=== PATIENT | female | born 1975 | race Caucasian/White ===

== ENCOUNTER 2025-02-16 07:48 | Inpatient (IN) | payer OTHER, SELFPAY ==
[2025-02-14] VITALS (20 sets, daily range): BP systolic 120–194; BP diastolic 63–113; BMI 29.1; BMI 30.3
--- NOTE | 2025-02-14 07:43 | ED.GENMED ---
History of Present Illness
<Becky Aleman DO, Resident - Last Filed: 02/14/25 15:35>
General
Chief Complaint: Alcohol Problem
Source: patient
Exam Limitations: none
Time Seen by Provider: 02/14/25 07:30
Nursing documentation reviewed up to this point in time: agreed with
History of Present Illness
History of Present Illness:
Patient is a 50-year-old female past medical history of alcohol abuse hypertension and hypothyroidism, presenting with alcohol withdrawal. Patient last drink at 3:30 AM. Patient drank 1/5 of vodka patient has a history of delirium tremens with
seizures, so she is unable to be in active withdrawal and go to the [facility] where she would like to go.
Review of Systems
<Becky Aleman DO, Resident - Last Filed: 02/14/25 15:35>
Review of Systems
Allergies reviewed?: Yes
All Other Systems: ROS reviewed and negative except as documented in HPI and ROS
Constitutional: Reports no symptoms
EENT: Reports no symptoms
Respiratory: Reports no symptoms
Cardiac: Reports palpitations
ABD/GI: Reports diarrhea
: Reports no symptoms
Musculoskeletal: Reports other (Shaky)
Skin: Reports no symptoms
Neurological: Reports headache
Endocrine: Reports no symptoms
Hematologic/Lymphatic: Reports no symptoms
Psychiatric: Reports anxiety
Phy Exam
<Becky Aleman DO, Resident - Last Filed: 02/14/25 15:35>
General Physical Exam
General Presentation: mild distress
General age: appears stated age
General Skin: warm and dry
Cardiovascular Exam
Cardiovascular Exam: regular rate/rhythm
Heart Sounds: normal
Pulmonary Exam
Pulmonary Exam: lungs clear and no respiratory distress
Gastrointestinal Exam
Gastrointestinal Exam: normal bowel sounds, non tender and soft
Neurological Exam
Neurological Exam: alert and oriented x3
Psychiatric Exam
Psychiatric Exam: anxious
Scores
<Becky Aleman DO, Resident - Last Filed: 02/14/25 15:35>
Withdrawal Assessment of Alcohol
Total CIWA Score: 6
Alcohol Withdrawal Medication Recommendation: Equal to MSAS Score 0-4. Monitor & re-assess q2hrs, NO MEDICATION NEEDED
<Monica Trejo DO - Last Filed: 02/14/25 14:07>
Withdrawal Assessment of Alcohol
Withdrawal Assessment Completed?: Yes
Nausea and Vomiting: Mild nausea with no vomiting
Tactile Disturbances: None
Tremor: Moderate, with patient's arms extended
Auditory Disturbances: Not present
Paroxysmal Sweats: No sweat visible
Visual Disturbances: Not present
Anxiety: Mild anxiety
Headache, Fullness in Head: Not present
Agitation: Normal activity
Orientation and clouding of sensorium: Oriented and can do serial additions
Total CIWA Score: 6
Alcohol Withdrawal Medication Recommendation: Equal to MSAS Score 0-4. Monitor & re-assess q2hrs, NO MEDICATION NEEDED
Course
<Becky Aleman DO, Resident - Last Filed: 02/14/25 15:35>
Orders/Labs/Results
Orders:
Orders
02/14/25 07:46
Electrocardiogram (*1) Stat
Reason for Study: Other
Other Reason for Exam: overdose
EKG- Treatment ONCE
0.9% Sodium Chloride 1000 ml [Nss] 1,000 ml IV BOLUS
Lorazepam [Ativan] 1 mg IV NOW STA
Test Result ONCE
02/14/25 07:47
Labetalol HCl [Trandate] 10 mg IV NOW STA
02/14/25 07:58
diazePAM [Valium Injection] 2 mg IV NOW STA
02/14/25 08:23
Urinalysis Reflex To Culture Urgent
Date Specimen was Collected: 02/14/25
Time Specimen was Collected: 07:49
Urine Drug Abuse Screen Urgent
Date Specimen was Collected: 02/14/25
Time Specimen was Collected: 07:49
Urine Microscopic Reflex Cult Urgent
02/14/25 08:37
Alcohol Urgent
Basic Metabolic Panel Urgent
Complete Blood Count/With Diff Urgent
HCG, Serum Qualitative Screen Urgent
02/14/25 09:46
Acetaminophen [Tylenol] 1,000 mg PO NOW STA
02/14/25 09:47
Ondansetron Injectable [Zofran] 4 mg IV NOW STA
diazePAM [Valium Injection] 2 mg IV NOW STA
02/14/25 10:18
Magnesium Urgent
Potassium Urgent
02/14/25 12:31
diazePAM [Valium Injection] 2 mg IV NOW STA
02/14/25 14:26
Admit/Transfer Patient As Directed
Co-Sign Provider:
Level of Care: Observation services
Assign to:: Telemetry
Physician / Group: socorro
Diagnosis: alcohol withdrawal
Reason for Telemetry: Arrhythmia
Date to Stop Telemetry: 02/17/25
Time to Stop Telemetry: 11:00
02/14/25 14:27
Code Status As Directed
Resuscitation Status: Full Code
PRN Pain Medication Management As Directed
May give lesser potent ordered pain med per pt: Yes
preference::
Protocol:: Medication orders for pain may be administered in a
manner that supports deferring to patient preference
when the pt is:
- Requesting an ordered lesser potent pain medication.
Least to most potent pain medications are defined
as: acetaminophen < NSAID < tramadol < opioids
(morphine, oxycodone, hydromorphone).
- Requesting a lesser dose of the same medication IF
ORDERED.
- Requesting a less intrusive route of administration
if both routes are prescribed by the provider (PO <
IV).
02/14/25 14:28
DIETARY IP CONSULT Routine
Reason for Consult: Nutrition support, possible refeeding guidelines
FOLic ACID [Folvite] 1 mg 0.9% Sodium Chloride 50 ml [Nss] 50 ml IV DAILYPRN
Lorazepam [Ativan] 1 mg PO Q2HPRN PRN
Phenobarbital Sodium [Phenobarbital] 260 mg 0.9% Sodium Chloride 100 ml [Nss] 100 ml IV NOW
02/14/25 14:29
Case Management Consult Once
Case Management Consult: Other
Comment: Substance abuse counseling
MSAS SCORE As Directed
MSAS Score 0-4: Repeat MSAS every 2 hours until 0-4 for three consecutive assessments, then every 4 hours x 48
hours.
MSAS Score 5-7: For MILD withdrawl symptoms. Repeat MSAS and RASS every 2 hours
MSAS Score 8-11: For MODERATE withdrawal symptoms. Repeat MSAS and RASS every 1 hour. Consider ICU or IMU
level of care.
MSAS Score > 11: For SEVERE withdrawal symptoms. Repeat MSAS and RASS every 1 hour. Notify provider, consider
ICU level of care.
MSAS Additional Instructions: If no improvement or no decrease in score from severe to moderate within 12
hours, consult psychiatry
MSAS Notify Provider: Notify provider if patient requires more than 10 mg of Lorazepam in eight hour period.
02/14/25 14:38
Lorazepam [Ativan] 1 mg PO Q1HPRN PRN
02/14/25 14:45
diazePAM [Valium Injection] 10 mg IV Q1HPRN PRN
02/14/25 22:00
Phenobarbital Sodium [Phenobarbital] 97.5 mg IV TID
02/15/25 08:00
FOLic ACID [Folvite] 1 mg PO DAILY
Thiamine HCl [Vitamin B1] 100 mg PO DAILY
02/16/25 22:00
Phenobarbital [Luminal] 64.8 mg PO TID
02/17/25 11:00
DC Protocol for Telemetry ONCE
02/18/25 22:00
Phenobarbital [Luminal] 32.4 mg PO TID
Abnormal Lab Results
02/14/25 02/14/25
08:23 08:37
RBC 3.97 L 10^6/uL
(4.20-5.40)
Hct 36.9 L %
(37.0-47.0)
MCHC 32.5 L g/dL
(33.0-37.0)
RDW 15.0 H %
(11.5-14.5)
Absolute Lymphs (auto) 0.7 L 10^3/uL
(1.2-3.4)
Lymphocytes % 14.2 L %
(20.5-51.1)
Creatinine 0.5 L mg/dL
(0.6-1.0)
Ur Occult Blood Reflex 1+ A
(Negative)
Ur Barbiturates Screen Positive H
(Negative)
02/14/25 08:37
02/14/25 10:18
Vital Signs
Initial and Last Documented VS:
Initial Vital Signs
Temp Pulse Resp BP Pulse Ox
98.1 F 95 18 194/113 98
02/14/25 07:18 02/14/25 07:18 02/14/25 07:18 02/14/25 07:18 02/14/25 07:18
Last Documented Vital Signs
Temp Pulse Resp BP Pulse Ox
98.6 F 87 20 148/85 95
02/14/25 08:28 02/14/25 11:27 02/14/25 11:27 02/14/25 11:27 02/14/25 11:27
<Monica Trejo, DO - Last Filed: 02/14/25 14:07>
Orders/Labs/Results
Orders:
Orders
02/14/25 07:46
Electrocardiogram (*1) Stat
Reason for Study: Other
Other Reason for Exam: overdose
EKG- Treatment ONCE
0.9% Sodium Chloride 1000 ml [Nss] 1,000 ml IV BOLUS
Lorazepam [Ativan] 1 mg IV NOW STA
Test Result ONCE
02/14/25 07:47
Labetalol HCl [Trandate] 10 mg IV NOW STA
02/14/25 07:58
diazePAM [Valium Injection] 2 mg IV NOW STA
02/14/25 08:23
Urinalysis Reflex To Culture Urgent
Date Specimen was Collected: 02/14/25
Time Specimen was Collected: 07:49
Urine Drug Abuse Screen Urgent
Date Specimen was Collected: 02/14/25
Time Specimen was Collected: 07:49
Urine Microscopic Reflex Cult Urgent
02/14/25 08:37
Alcohol Urgent
Basic Metabolic Panel Urgent
Complete Blood Count/With Diff Urgent
HCG, Serum Qualitative Screen Urgent
02/14/25 09:46
Acetaminophen [Tylenol] 1,000 mg PO NOW STA
02/14/25 09:47
Ondansetron Injectable [Zofran] 4 mg IV NOW STA
diazePAM [Valium Injection] 2 mg IV NOW STA
02/14/25 10:18
Magnesium Urgent
Potassium Urgent
02/14/25 12:31
diazePAM [Valium Injection] 2 mg IV NOW STA
02/14/25 14:26
Admit/Transfer Patient As Directed
Co-Sign Provider:
Level of Care: Observation services
Assign to:: Telemetry
Physician / Group: socorro
Diagnosis: alcohol withdrawal
Reason for Telemetry: Arrhythmia
Date to Stop Telemetry: 02/17/25
Time to Stop Telemetry: 11:00
02/14/25 14:27
Code Status As Directed
Resuscitation Status: Full Code
PRN Pain Medication Management As Directed
May give lesser potent ordered pain med per pt: Yes
preference::
Protocol:: Medication orders for pain may be administered in a
manner that supports deferring to patient preference
when the pt is:
- Requesting an ordered lesser potent pain medication.
Least to most potent pain medications are defined
as: acetaminophen < NSAID < tramadol < opioids
(morphine, oxycodone, hydromorphone).
- Requesting a lesser dose of the same medication IF
ORDERED.
- Requesting a less intrusive route of administration
if both routes are prescribed by the provider (PO <
IV).
02/14/25 14:28
DIETARY IP CONSULT Routine
Reason for Consult: Nutrition support, possible refeeding guidelines
FOLic ACID [Folvite] 1 mg 0.9% Sodium Chloride 50 ml [Nss] 50 ml IV DAILYPRN
Lorazepam [Ativan] 1 mg PO Q2HPRN PRN
Phenobarbital Sodium [Phenobarbital] 260 mg 0.9% Sodium Chloride 100 ml [Nss] 100 ml IV NOW
02/14/25 14:29
Case Management Consult Once
Case Management Consult: Other
Comment: Substance abuse counseling
MSAS SCORE As Directed
MSAS Score 0-4: Repeat MSAS every 2 hours until 0-4 for three consecutive assessments, then every 4 hours x 48
hours.
MSAS Score 5-7: For MILD withdrawl symptoms. Repeat MSAS and RASS every 2 hours
MSAS Score 8-11: For MODERATE withdrawal symptoms. Repeat MSAS and RASS every 1 hour. Consider ICU or IMU
level of care.
MSAS Score > 11: For SEVERE withdrawal symptoms. Repeat MSAS and RASS every 1 hour. Notify provider, consider
ICU level of care.
MSAS Additional Instructions: If no improvement or no decrease in score from severe to moderate within 12
hours, consult psychiatry
MSAS Notify Provider: Notify provider if patient requires more than 10 mg of Lorazepam in eight hour period.
02/14/25 14:38
Lorazepam [Ativan] 1 mg PO Q1HPRN PRN
02/14/25 14:45
diazePAM [Valium Injection] 10 mg IV Q1HPRN PRN
02/14/25 22:00
Phenobarbital Sodium [Phenobarbital] 97.5 mg IV TID
02/15/25 08:00
FOLic ACID [Folvite] 1 mg PO DAILY
Thiamine HCl [Vitamin B1] 100 mg PO DAILY
02/16/25 22:00
Phenobarbital [Luminal] 64.8 mg PO TID
02/17/25 11:00
DC Protocol for Telemetry ONCE
02/18/25 22:00
Phenobarbital [Luminal] 32.4 mg PO TID
Abnormal Lab Results
02/14/25 02/14/25
08:23 08:37
RBC 3.97 L 10^6/uL
(4.20-5.40)
Hct 36.9 L %
(37.0-47.0)
MCHC 32.5 L g/dL
(33.0-37.0)
RDW 15.0 H %
(11.5-14.5)
Absolute Lymphs (auto) 0.7 L 10^3/uL
(1.2-3.4)
Lymphocytes % 14.2 L %
(20.5-51.1)
Creatinine 0.5 L mg/dL
(0.6-1.0)
Ur Occult Blood Reflex 1+ A
(Negative)
Ur Barbiturates Screen Positive H
(Negative)
02/14/25 08:37
02/14/25 10:18
Vital Signs
Initial and Last Documented VS:
Initial Vital Signs
Temp Pulse Resp BP Pulse Ox
98.1 F 95 18 194/113 98
02/14/25 07:18 02/14/25 07:18 02/14/25 07:18 02/14/25 07:18 02/14/25 07:18
Last Documented Vital Signs
Temp Pulse Resp BP Pulse Ox
98.6 F 87 20 148/85 95
02/14/25 08:28 02/14/25 11:27 02/14/25 11:27 02/14/25 11:27 02/14/25 11:27
<Becky Aleman DO, Resident - Last Filed: 02/14/25 15:35>
MDM/Problems Addressed
Differential Diagnosis Includes:
Alcohol withdrawal
MDM/Problems Addressed:
Patient received 4 mg of Valium IV, Zofran for nausea, Tylenol for headache. Patient still symptomatic saying she is shaky. Patient received three 2 mg doses of Valium. Patient still shaky. Patient will be admitted since [facility] is unable to
place the patient tonight d/t her reported history of DT with seizures.
<Becky Aleman DO, Resident - Last Filed: 02/14/25 15:35>
*Pulse Oximetry
SaO2: 96
Oxygen Mode of Delivery: Room air
Patient hypoxic: no
*Critical Care Note
Total Time (30-74mins, 75-104mins- exclusive of procedures): Not Applicable
ED Attending Note
<Becky Aleman DO, Resident - Last Filed: 02/14/25 15:35>
-
Portions of this chart may have been created with voice recognition software.� Occasional wrong word or��sound alike� substitutions may have occurred due to the inherent limitations of voice recognition software.
<Monica Trejo DO - Last Filed: 02/14/25 14:07>
ED Attending Note
Patient seen and examined by attending physician: Yes
I performed the substantive portion of visit, reviewed & personally made and approve the management plan that is documented in note by myself or RAFFY.: Yes
I performed a history and physical exam of patient and discussed management with resident, I reviewed resident's note and agree with documented findings and plan of care.: Yes
ED Attending Note:
50-year-old female with history of alcohol abuse presenting for alcohol issues. Patient presents, seeking placement for her alcohol abuse. Last drink was at 330 this morning. She is interested in going to the [facility]. Note some shakiness
and some headache. Her blood pressure is also elevated, history of high blood pressure and is on losartan. Denies any vomiting. Denies any chest pain. Denies any hallucinations. Denies any fever. Recent admission at [facility] for alcohol
withdrawal, however without signs of facility. Denies history of withdrawal seizure. Denies additional acute complaints
Vital signs arrival significant for high blood pressure. On exam patient is resting comfortably, awake and alert, no acute discomfort. Unremarkable cardiac, pulmonary, abdominal exam. No focal neurologic deficits. Suspect mild withdrawal. Will
treat patient with IV benzos, IV fluids and consult with [facility] for placement.
14:00 - 's workup is grossly unremarkable, remains hemodynamically stable, slightly tremulous. [facility] currently unable to place patient given prior history of DTs and withdrawal seizures, more likely replace tomorrow also recommending admission for
alcohol withdrawal pending placement
Discharge Plan
Departure
Patient Disposition: Admit
Date of Disposition: 02/14/25
Time of Disposition: 14:16
Presentation/result/management discussed w/ accepting MD/DO: Hospitalist
Patient with high blood pressure during this ER visit?: Yes
Discharge Problem:
Alcohol abuse with withdrawal
Interventions
Interventions:
*Risk Screen - Suicide Last Done: 02/14/25 07:18
*General Assessment Last Done: 02/14/25 07:18
*Neglect/Abuse Screening Last Done: 02/14/25 07:18
*ED- Fall Risk Assessment Last Done: 02/14/25 08:28
*ED COVID-19 Vaccine History Last Done: 02/14/25 08:28
ED- Neurological Assessment Last Done: 02/14/25 08:28
ED-Psychological Assessment Last Done: 02/14/25 08:28
[2025-02-14 08:38] LABS: Urine Character Clear (Clear)
[2025-02-14] MEDS: TRANDATE 10 MG IV (08:43)
[2025-02-14 08:44] LABS: Hematocrit 36.9 % (37.0-47.0); Hemoglobin 12.0 g/dL (12.0-16.0); Mean Corp Hgb Conc. 32.5 g/dL (33.0-37.0); Mean Corpuscular Volume 92.9 fL (81.0-99.0); Nucleated Red Blood Cells % 0 %; Platelet Count 141 10^3/uL (130-400); Red Cell Dist. Width 15.0 % (11.5-14.5)
[2025-02-14] MEDS: VALIUM INJECTION 2 MG IV ×3 (08:44→12:53)
[2025-02-14] MEDS: NSS 1000 IV ×2 (08:44→18:13)
[2025-02-14 09:11] LABS: HCG, Serum Qualitative Screen Negative
[2025-02-14 09:22] LABS: Blood Urea Nitrogen 11 mg/dl (7-17); Calcium 9.1 mg/dl (8.4-10.2); Carbon Dioxide 25 mmol/L (22-30); Chloride 106 mmol/L (98-107); Estimated Creatinine Clearance 119 ml/min; Glucose 94 mg/dl (70-99); Sodium 141 mmol/L (135-145); eGFR > 60.00
[2025-02-14 09:53] LABS: Urine Red Blood Cell 0-2 /HPF (0-2); Urine White Cell 0-2 /HPF (0-5)
[2025-02-14] MEDS: VALIUM INJECTION IV (10:02)
[2025-02-14] MEDS: ZOFRAN 4 MG IV ×2 (10:08→18:08)
[2025-02-14] MEDS: TYLENOL 1000 MG PO ×2 (10:08→22:54)
[2025-02-14 10:59] LABS: Magnesium 1.9 mg/dl (1.6-2.3); Potassium 3.9 mmol/L (3.5-5.1)
--- NOTE | 2025-02-14 12:13 | EDRN ---
[facility] currently at the pts bedside speaking with the pt
--- NOTE | 2025-02-14 14:30 | HPS.HSE ---
Family Physician
-
Family Physician: Addie Burris, DO
Chief Complaint
-
alcohol withdrawal
History of Present Illness
50-year-old female past medical history of alcohol use disorder, alcohol withdrawal seizure, hypertension, hypothyroidism, anxiety/depression presenting with alcohol withdrawal. She has tremors, shaking nausea without vomiting, some mild abdominal
pain, chest tightness. Her last alcoholic drink was at 3 AM. She drinks a fifth of vodka per day. Uses e-cigarette occasionally. Denies marijuana or other drugs.
She states that she was on phenobarbital protocol for alcohol withdrawal 2 months ago that was mismanaged. She was on ketamine drip at that time.
Medical History
Past Medical History
Past Medical History: Reports Other (alcohol use disorder, alcohol withdrawal seizure, hypertension, hypothyroidism, anxiety/depression)
Past Surgical History: Reports None
Social History
Tobacco: Non-smoker
Alcohol: None
Drug: None
Family History
Family History: Not pertinent
Allergies / Home Medications
Allergies reflects when Allergies were last updated in [facility].
Home Medications with original date entered in [facility]
Allergy/Medication List:
Allergies
Allergy/AdvReac Type Severity Reaction Status Date / Time
No Known Allergies Allergy Unverified 02/14/25 07:18
Home Medications
levothyroxine 125 mcg tablet 125 mcg PO DAILY 02/14/25
losartan 50 mg tablet 50 mg PO DAILY 02/14/25
sertraline 50 mg tablet (Zoloft) 50 mg PO DAILY 02/14/25
Review of Systems
-
History Source: Patient
A 12 point ROS was completed and negative except as noted: Yes
Constitutional: Reports No Symptoms
EENT: Reports No Symptoms
Respiratory: Reports See HPI
Cardiac: Reports See HPI
Abdomen/GI: Reports See HPI
: Reports No Symptoms
Musculoskeletal: Reports No Symptoms
Skin: Reports No Symptoms
Neurological: Reports No Symptoms
Endocrine: Reports No Symptoms
Hematologic/Lymphatic: Reports No Symptoms
Psych: Reports No Symptoms
Physical Exam
Vital Signs
Vital Signs
Temp Pulse Resp BP Pulse Ox
98.6 F 87 20 148/85 95
02/14/25 08:28 02/14/25 11:27 02/14/25 11:27 02/14/25 11:27 02/14/25 11:27
Physical Exam
General: Well Developed, Well Nourished and No Apparent Distress
HEENT: NormoCephalic, Moist mucous membranes and Atraumatic
Respiratory: Clear
Cardiac: S1/S2 and Regular Rhythm; No Murmur or Rub
GI: Soft, Non Tender, Non Distended and Normal Bowel Sounds; No Organomegaly
Rectal: Deferred by Provider
Musculoskeletal: No Clubbing, No Cyanosis and No Edema
Skin: No Rash
Neuro: Nonfocal/grossly intact
Laboratory Results
-
02/14/25 08:37
02/14/25 10:18
Laboratory Results
Total Bilirubin Cancelled 02/14/25 08:37
AST Cancelled 02/14/25 08:37
ALT Cancelled 02/14/25 08:37
Alkaline Phosphatase Cancelled 02/14/25 08:37
Data Reviewed
-
Lab Data: Labs Reviewed by me
Old Records: Reviewed
Impression/Plan
-
IMPRESSION:
PLAN:
# Alcohol withdrawal
-Alcohol level 49
-UDS positive for barbiturates
-EKG unremarkable
- IV fluids
- Thiamine and folate
- Alcohol withdrawal protocol
- Phenobarbital protocol
- [facility] unable to place patient tonight due to reported history of DT with seizures
Essential hypertension
- Continue losartan
Hypothyroidism
- Continue levothyroxine
Anxiety/depression
- Continue sertraline
Full code
DVT prophylaxis�heparin
Regular diet
[2025-02-14] MEDS: PHENOBARBITAL 104 MG IV (15:18)
--- NOTE | 2025-02-14 15:36 | CM ---
Met with patient at the bedside in the ED
CM Consult completed: agreeable to speaking with [facility] Counselor to discuss ETOH rehab
Pharmacy verified: [facility] @ [address] [place]
Patient lives w/ spouse and 12 yr old step-son; multilevel home; powder room 1st floor; no steps to enter; 10 steps to 2nd floor; railing on stairs; 2nd floor bath has tub w/ shower
PLOF: independent with ambulation, stairs, and ADLs; does not work; drives
NO DME
NO SNF or Home Health utilization history; ETOH rehab admission in August 2024 @ [facility]
Plan: Per [facility], patient will discharge to Inpatient ETOH Rehab; facility bed availability is pending
--- NOTE | 2025-02-14 15:41 | EDRN ---
this RN processed admission orders and notified pharmacy
[2025-02-14] MEDS: VALIUM INJECTION 10 MG IV (18:07)
[2025-02-14] MEDS: HEPARIN 5000 UNITS SC (20:10)
[2025-02-14] MEDS: ATIVAN 1 MG PO ×2 (20:11→22:57)
[2025-02-14] MEDS: PHENOBARBITAL 97.5 MG IV (21:23)
[2025-02-15 03:00] VITALS: BP 116/59
[2025-02-15] MEDS: NSS 1000 IV ×2 (03:20→16:05)
[2025-02-15] MEDS: ATIVAN 1 MG PO ×7 (03:25→21:17)
[2025-02-15] MEDS: SYNTHROID 125 MCG PO (05:21)
[2025-02-15 07:00] VITALS: BP 123/78
[2025-02-15 08:37] LABS: Hematocrit 33.9 % (37.0-47.0); Hemoglobin 10.8 g/dL (12.0-16.0); Mean Corp Hgb Conc. 31.9 g/dL (33.0-37.0); Mean Corpuscular Volume 94.2 fL (81.0-99.0); Nucleated Red Blood Cells % 0 %; Platelet Count 121 10^3/uL (130-400); Red Cell Dist. Width 15.2 % (11.5-14.5)
[2025-02-15] MEDS: PHENOBARBITAL 97.5 MG IV ×3 (08:50→21:07)
[2025-02-15] MEDS: HEPARIN 5000 UNITS SC ×2 (08:53→19:16)
[2025-02-15] MEDS: ZOLOFT 100 MG PO (08:54)
[2025-02-15] MEDS: VITAMIN B1 100 MG PO (08:54)
[2025-02-15] MEDS: COZAAR 50 MG PO (08:54)
[2025-02-15] MEDS: FOLVITE 1 MG PO (08:54)
[2025-02-15 09:53] LABS: ALT (SGPT) 23 U/L (0-35); AST (SGOT) 31 U/L (14-36); Albumin 3.8 g/dl (3.5-5.0); Alkaline Phosphatase 37 U/L (38-126); Blood Urea Nitrogen 10 mg/dl (7-17); Calcium 8.4 mg/dl (8.4-10.2); Carbon Dioxide 24 mmol/L (22-30); Chloride 107 mmol/L (98-107); Estimated Creatinine Clearance 122 ml/min; Glucose 88 mg/dl (70-99); Potassium 3.9 mmol/L (3.5-5.1); Sodium 135 mmol/L (135-145); Total Protein 6.9 g/dl (6.3-8.2); eGFR > 60.00
[2025-02-15 11:42] VITALS: BP 163/95
--- NOTE | 2025-02-15 12:09 | PTCARENOTE ---
Pt reports visual hallucination while in bathroom , saw 'black cloud' while looking in the mirror. Hospitalist in room and pt did make them aware . Mild tremors noted when holding hands . Pt appetite fair- had an omelet for breakfast, no nausea
no vomiting .
--- NOTE | 2025-02-15 14:17 | W.PN.HOSP.TC ---
Addendum entered and electronically signed by Samson Polk MD 02/15/25 21:29:
Attending Addendum-
I saw and evaluated the patient. I reviewed the resident�s note and agree with findings and plan as documented in the resident�s note. Sub: per patient had auditory and visual hallucinations this am. Now resolved. Denies cp palps diaphoresis
tremors. Full 12 point ROS reviewed and negative except as documented Exam: Vitals reviewed in chart GEN-NAD heart RRR lungs clear abd soft LE no edema Neuro mild resting tremor
# AUD with Alcohol withdrawal high risk DTs
- UDS positive for barbiturates
- EKG unremarkable
- cont IV fluids
- start high does IV Thiamine and cont folate
- MSAS @ 4-5
- Phenobarbital taper protocol in place- switch to symptom triggered protocol in am
- await IP rehab placement patient amendable - [facility] on board
- needs to be 'fully detoxed' prior to DC
#Essential hypertension
- Continue losartan
# Tobacco abuse-advised to quit
#Hypothyroidism
- Continue levothyroxine
#Anxiety/depression
- Continue sertraline
Full code
DVT prophylaxis�heparin
Dispo DC to IP rehab when able
Time spent coordinating care, review of plan of care with resident, personally reviewed records in EMR, med rec, consults, notes, labs, radiology, d/w nursing � 51 mins
Original Note:
Today's Communication/Plan
-
Continue Phenobarbital taper
Continue to monitor MSAS
Awaiting availability for inpatient rehab
Assessment / Plan
Assessment / Plan
Withdrawal symptoms
-Continue observation
-Continue Phenobarbitol
Alcohol depenence
- Discharge patient to an in-patient rehab facility
-Discuss with case management coordinator
Essential hypertension
- Continue losartan
Hypothyroidism
- Continue levothyroxine
Anxiety/depression
- Continue sertraline
Full code
DVT prophylaxis�heparin
Regular diet
Anticipated Discharge: Within 24 hours
Subjective/Interval History
-
Date of Service: February 15, 2025
Patient seen today.
Admitted yesterday for alcohol withdrawal symptoms
Symptoms reduced over the night. Though she says she had an episode of auditory and visual hallucination .
Patient is willing to undergo in-patient alcohol dependence treatment.
Objective Data
-
Labs:
Laboratory Results
02/15/25
08:20
WBC 2.5 L
Hgb 10.8 L
Hct 33.9 L
Plt Count 121 L
Sodium 135
Potassium 3.9
Chloride 107
Carbon Dioxide 24
BUN 10
Creatinine 0.6
Glucose 88
Calcium 8.4
Total Bilirubin 0.6
AST 31
ALT 23
Alkaline Phosphatase 37 L
Vital Signs:
Vital Signs
Temp Pulse Resp BP Pulse Ox
98.0 F 100 20 163/95 95
02/15/25 11:42 02/15/25 11:42 02/15/25 11:42 02/15/25 11:42 02/15/25 11:42
I&O
02/14/25 02/15/25 02/16/25
06:59 06:59 06:59
Intake Total 960 / 960
Balance 960 / 960
Review of Systems
-
History Source: Patient
Constitutional: Reports No Symptoms
EENT: Reports No Symptoms Reported
Respiratory: Reports No Symptoms
Cardiac: Reports No Symptoms
Abdomen/GI: Reports Nausea and Diarrhea
Breast: Reports No Symptoms
Physical Exam
-
General: Well Developed
Respiratory: Clear to Auscultation
Cardiac: Regular Rhythm and S1/S2
GI: Soft, Nontender, Nondistended and Normal Bowel Sounds
Neuro: Awake, Alert and Oriented
Psych: Anxious
Data Reviewed
-
Labs: Labs Reviewed by me, Discussed with Physician and Discussed with Patient
--- NOTE | 2025-02-15 14:53 | CM ---
Addendum entered by Rosa Elena Knutson 02/15/25 14:59:
Eugene from [facility] ([phone])
Addendum entered by Rosa Elena Knutson 02/15/25 14:56:
OBS form reviewed verbally, provided with copy, placed in chart.
Original Note:
CM reviewed chart, patient seen bedside. [facility] following patient, at this time patient declined by [facility], will need patient to be fully detoxed prior to d.c.- update to Resident. CM will discuss with [facility] additional
inpatient facilities for patient, patient prefers to stay local if possible. Patient requesting to speak with [facility] tomorrow, will update [facility]. CM will continue to follow for all discharge planning needs.
Plan; inpatient rehab, [facility] working on accepting facility
[2025-02-15 15:00] VITALS: BP 167/90
[2025-02-15 19:25] VITALS: BP 152/105
[2025-02-15] MEDS: THIAMINE INJECTION 252.5 MG IV (22:24)
[2025-02-16] VITALS (7 sets, daily range): BP systolic 122–145; BP diastolic 55–91
[2025-02-16] MEDS: ATIVAN 1 MG PO ×8 (01:04→23:28)
[2025-02-16] MEDS: SYNTHROID 125 MCG PO (04:38)
[2025-02-16] MEDS: NSS IV (05:18)
--- NOTE | 2025-02-16 07:35 | W.PN.HOSP.TC ---
Addendum entered and electronically signed by Samson Polk MD 02/16/25 21:36:
Attending Addendum-
I saw and evaluated the patient. I reviewed the resident�s note and agree with findings and plan as documented in the resident�s note. Sub: patient aggravated. 'just let me sleep' states she had auditory and visual hallucinations last PM. Denies cp
palps diaphoresis tremors. 'i know you guys are just going to kick me out' Full 12 point ROS reviewed and negative except as documented Exam: Vitals reviewed in chart GEN-NAD heart RRR lungs clear abd soft LE no edema Neuro no tremor AAO x 3 MS 11/08
# AUD with Alcohol withdrawal h/o DTs
- UDS positive for barbiturates
- cont IV fluids
- cont high does IV Thiamine and cont folate
- MSAS @ 4-5
- Phenobarbital taper protocol in place- switch to symptom triggered protocol now
- IP rehab placement when bed available - [facility] on board
#Pancytopenia- from AUD, CTM repeat CBC in am
#Essential hypertension- Continue losartan
#Tobacco abuse-advised to quit
#Hypothyroidism- Continue levothyroxine
#Anxiety/depression- Continue sertraline
Full code
DVT prophylaxis�heparin
Dispo DC to IP rehab when able
Time spent coordinating care, review of plan of care with resident, personally reviewed records in EMR, med rec, consults, notes, labs, radiology, d/w nursing � 52 mins
Original Note:
Today's Communication/Plan
-
For discharge to inpatient rehab facility
Assessment / Plan
Assessment / Plan
# AUD with Alcohol withdrawal high risk DTs
- MSAS @ 4-5
-Triggered protocol in am
- await IP rehab placement patient amendable - [facility] on board
- needs to be 'fully detoxed' prior to DC
#Mild intermittent ashma
-Contnue inhaler
#Essential hypertension
- Continue losartan
# Tobacco abuse-advised to quit
#Hypothyroidism
- Continue levothyroxine
#Anxiety/depression
- Continue sertraline
Full code
DVT prophylaxis�heparin
Dispo DC to IP rehab when able
Anticipated Discharge: Within 24 hours
Subjective/Interval History
-
Date of Service: February 16, 2025
Patient seen
Still having intermittent episodes of agitation, diaphoresis and restlessness
1 episode of hallucination at night, but patient is oriented
Objective Data
-
Labs:
Laboratory Results
02/16/25
06:00
WBC Pending
Hgb Pending
Hct Pending
Plt Count Pending
Sodium Pending
Potassium Pending
Chloride Pending
Carbon Dioxide Pending
BUN Pending
Creatinine Pending
Glucose Pending
Calcium Pending
Total Bilirubin Pending
AST Pending
ALT Pending
Alkaline Phosphatase Pending
Vital Signs:
Vital Signs
Temp Pulse Resp BP Pulse Ox
98 F 81 16 123/72 97
02/16/25 03:00 02/16/25 03:00 02/16/25 03:00 02/16/25 03:00 02/16/25 03:00
I&O
02/15/25 02/16/25 02/17/25
06:59 06:59 06:59
Intake Total 960 / 960 2160 / 2160
Balance 960 / 960 2160 / 2160
Review of Systems
-
History Source: Patient
Constitutional: Reports No Symptoms
EENT: Reports No Symptoms Reported
Respiratory: Reports Wheezing
Cardiac: Reports No Symptoms
Abdomen/GI: Reports Nausea and Diarrhea
Breast: Reports No Symptoms
Physical Exam
-
General: Well Developed
Respiratory: Wheezes
Cardiac: Regular Rhythm and S1/S2
GI: Soft, Nontender, Nondistended and Normal Bowel Sounds
Neuro: Awake, Alert and Oriented
Psych: Anxious
Data Reviewed
-
Labs: Labs Reviewed by me, Discussed with Physician and Discussed with Patient
[2025-02-16] MEDS: PHENOBARBITAL 97.5 MG IV ×2 (07:55→16:15)
[2025-02-16] MEDS: HEPARIN 5000 UNITS SC ×2 (08:06→21:00)
[2025-02-16] MEDS: COZAAR 50 MG PO (08:06)
[2025-02-16] MEDS: FOLVITE 1 MG PO (08:06)
[2025-02-16] MEDS: THIAMINE INJECTION 252.5 MG IV ×3 (08:07→23:07)
[2025-02-16] MEDS: ZOLOFT 100 MG PO (08:07)
--- NOTE | 2025-02-16 09:18 | CM ---
CM reviewed chart, spoke with Eugene from [facility], clinicals faxed over, will send clinicals to inpatient treatment facilities. Will continue to follow with [facility] to inpatient treatment acceptance. CM will continue to follow for all discharge planning
needs.
Plan; [facility] following for inpatient treatment
[2025-02-16 09:27] LABS: Hematocrit 32.7 % (37.0-47.0); Hemoglobin 10.5 g/dL (12.0-16.0); Mean Corp Hgb Conc. 32.1 g/dL (33.0-37.0); Mean Corpuscular Volume 94.0 fL (81.0-99.0); Platelet Count 118 10^3/uL (130-400); Red Cell Dist. Width 15.0 % (11.5-14.5)
[2025-02-16 10:22] LABS: ALT (SGPT) 21 U/L (0-35); AST (SGOT) 28 U/L (14-36); Albumin 3.8 g/dl (3.5-5.0); Alkaline Phosphatase 39 U/L (38-126); Blood Urea Nitrogen 5 mg/dl (7-17); Calcium 8.3 mg/dl (8.4-10.2); Carbon Dioxide 24 mmol/L (22-30); Chloride 107 mmol/L (98-107); Estimated Creatinine Clearance 122 ml/min; Glucose 84 mg/dl (70-99); Potassium 4.1 mmol/L (3.5-5.1); Sodium 136 mmol/L (135-145); Total Protein 6.7 g/dl (6.3-8.2); eGFR > 60.00
[2025-02-16] MEDS: TYLENOL 650 MG PO (16:34)
--- NOTE | 2025-02-16 19:35 | PTCARENOTE ---
Patient`s MSAS score was a 6 at 1900. Patient was provided 1mg of prn Ativan for symptoms, see mar for administration. Patient is anxious about her PO phenobarb taper being discontinued. She stated that she felt like no one discussed the update in
her care plan with her. RN confirmed with plan with resident and attending doctor. Resident physician came to the bedside to discuss the updated care plan with the patient.
[2025-02-17] MEDS: ATIVAN 1 MG PO ×5 (02:18→20:58)
[2025-02-17 03:00] VITALS: BP 128/104
[2025-02-17] MEDS: SYNTHROID 125 MCG PO (06:15)
--- NOTE | 2025-02-17 07:22 | W.PN.HOSP.TC ---
Addendum entered and electronically signed by Samson Polk MD 02/17/25 22:07:
Attending Addendum-
I saw and evaluated the patient. I reviewed the resident�s note and agree with findings and plan as documented in the resident�s note. Sub: patient aggravated. states she had auditory hallucinations last PM. seen with present. 'Im going to
get DT's i prefer phenobarbital.' Denies cp palps diaphoresis tremors. Full 12 point ROS reviewed and negative except as documented Exam: Vitals reviewed in chart GEN-mild distress due to being upset heart RRR lungs clear abd soft LE no edema Neuro
no tremor AAO x 3 MS 11/08
# AUD with Alcohol withdrawal h/o DTs
- UDS positive for barbiturates last given at [facility] on 01/24 per patient.
- not in DT's no signs of autonomic instability- start prn clonidine
- cont IV fluids
- cont Thiamine and folate
- MSAS @ 5
- Standing Phenobarbital taper DC'd- cont symptom triggered protocol with benzo
- IP rehab placement in am- [facility] on board
#Pancytopenia- from AUD, CTM repeat CBC in am
#Essential hypertension- Continue losartan
#Tobacco abuse-advised to quit
#Hypothyroidism- Continue levothyroxine
#Anxiety/depression- Continue sertraline
Full code
DVT prophylaxis�heparin
Dispo DC to IP rehab in AM
Time spent coordinating care, review of plan of care with resident, personally reviewed records in EMR, med rec, consults, notes, labs, radiology, d/w nursing CM and POA � 51 mins
Original Note:
Today's Communication/Plan
-
Counselled on the need for discontinuing of Barbiturate, For symptom based benzo and clonidine
Assessment / Plan
Assessment / Plan
# AUD with Alcohol withdrawal high risk DTs
- MSAS @ 4-5
-Triggered protocol started yesterday
- Await IP rehab placement patient amendable - [facility] on board
-Convert Thiamine to PO
-PRN Clonidine for agitation, threshold SBP <100BPM
#Mild intermittent ashma
-Continue inhaler
#Essential hypertension
- Continue losartan
# Tobacco abuse-advised to quit
#Hypothyroidism
- Continue levothyroxine
#Anxiety/depression
- Continue sertraline
Full code
DVT prophylaxis�heparin
Dispo DC to IP rehab when able
Anticipated Discharge: Within 24 hours
Subjective/Interval History
-
Date of Service: February 17, 2025
Patient seen.
Complains of agitation and auditory hallucination
Has had 3 BM over the past 24hrs, reducing
Objective Data
-
Labs:
Laboratory Results
02/17/25
07:14
WBC Pending
Hgb Pending
Hct Pending
Plt Count Pending
Sodium Pending
Potassium Pending
Chloride Pending
Carbon Dioxide Pending
BUN Pending
Creatinine Pending
Glucose Pending
Calcium Pending
Vital Signs:
Vital Signs
Temp Pulse Resp BP Pulse Ox
97.5 F 93 20 128/104 97
02/17/25 03:00 02/17/25 03:00 02/17/25 03:00 02/17/25 03:00 02/17/25 03:00
I&O
02/16/25 02/17/25 02/18/25
06:59 06:59 06:59
Intake Total 2159
Balance 2159
Review of Systems
-
History Source: Patient
Constitutional: Reports No Symptoms
EENT: Reports No Symptoms Reported
Respiratory: Reports Wheezing
Cardiac: Reports No Symptoms
Abdomen/GI: Reports Diarrhea
Breast: Reports No Symptoms
Physical Exam
-
General: Well Developed
Respiratory: Wheezes (Left upper chest)
Cardiac: Regular Rhythm and S1/S2
GI: Soft, Nontender, Nondistended and Normal Bowel Sounds
Neuro: Awake, Alert and Oriented
Psych: Anxious
Data Reviewed
-
Labs: Labs Reviewed by me, Discussed with Physician, Discussed with Patient and Discussed with Family
[2025-02-17 08:01] VITALS: BP 134/84
[2025-02-17 08:23] LABS: Hematocrit 33.3 % (37.0-47.0); Hemoglobin 10.8 g/dL (12.0-16.0); Mean Corp Hgb Conc. 32.4 g/dL (33.0-37.0); Mean Corpuscular Volume 93.3 fL (81.0-99.0); Platelet Count 119 10^3/uL (130-400); Red Cell Dist. Width 14.9 % (11.5-14.5)
[2025-02-17 09:14] LABS: Blood Urea Nitrogen 12 mg/dl (7-17); Calcium 8.9 mg/dl (8.4-10.2); Carbon Dioxide 23 mmol/L (22-30); Chloride 108 mmol/L (98-107); Estimated Creatinine Clearance 122 ml/min; Glucose 88 mg/dl (70-99); Potassium 4.2 mmol/L (3.5-5.1); Sodium 136 mmol/L (135-145); eGFR > 60.00
[2025-02-17] MEDS: FOLVITE 1 MG PO (09:28)
[2025-02-17] MEDS: COZAAR 50 MG PO (09:28)
[2025-02-17] MEDS: ZOLOFT 100 MG PO (09:29)
[2025-02-17] MEDS: HEPARIN 5000 UNITS SC ×2 (09:29→20:57)
[2025-02-17] MEDS: THIAMINE INJECTION IV ×2 (09:29→09:38)
[2025-02-17 11:46] VITALS: BP 144/93
[2025-02-17] MEDS: VITAMIN B1 100 MG PO (11:54)
--- NOTE | 2025-02-17 14:01 | PTCARENOTE ---
Pt has verbalized frustration with plan of care and medication regimen for ETOH withdrawal to RN many times this shift, RN has relayed complaints to Hospitalist team who came by to discuss MSAS protocol and discharge planning with patient and
patient spouse. [facility] also came by pt room to discuss rehab. RN reviewed MSAS protocol and medication administration twice to patient this shift, also reached out to hospitalist team for pt requesting po thiamine since she felt iv thiamine was
irritating her veins. RN assessing patient needs frequently, vital signs are stable, patient verbalized this afternoon not wanting to be bothered so she can nap.
--- NOTE | 2025-02-17 15:31 | CM ---
CM reviewed chart, CM met with Eugene from [facility] and Resident to discuss patient concerns regarding discharge. Patient accepted by [facility] and scheduled for 1:00 p.m. pick out hand, transport canceled, patient feels as though she is not medically
stable for d/c. Eugene in to speak with patient multiple times, Resident and Hospitalist in to speak with patient. [facility] continues to work with patient for inpatient treatment. CM will continue to follow for all discharge planning needs.
Plan; inpatient treatment, [facility] to [facility] patient in facility
[2025-02-17 16:03] VITALS: BP 142/80
--- NOTE | 2025-02-17 16:27 | PTCARENOTE ---
Checked on patient again, pt is still resting comfortably in bed with eye mask on, napping. Woke up for vital signs. HR remains NSR 60-75 bpm on telemetry.
[2025-02-17 19:00] VITALS: BP 130/73
[2025-02-17 23:00] VITALS: BP 127/72
[2025-02-18 03:00] VITALS: BP 125/66
[2025-02-18] MEDS: SYNTHROID 125 MCG PO (06:19)
[2025-02-18 06:41] LABS: Hematocrit 34.5 % (37.0-47.0); Hemoglobin 11.5 g/dL (12.0-16.0); Mean Corp Hgb Conc. 33.3 g/dL (33.0-37.0); Mean Corpuscular Volume 90.8 fL (81.0-99.0); Platelet Count 80 10^3/uL (130-400); Red Cell Dist. Width 15.1 % (11.5-14.5)
[2025-02-18 07:00] VITALS: BP 117/68
[2025-02-18 07:00] LABS: Blood Urea Nitrogen 11 mg/dl (7-17); Calcium 9.4 mg/dl (8.4-10.2); Carbon Dioxide 23 mmol/L (22-30); Chloride 107 mmol/L (98-107); Estimated Creatinine Clearance 122 ml/min; Glucose 75 mg/dl (70-99); Potassium 3.9 mmol/L (3.5-5.1); Sodium 137 mmol/L (135-145); eGFR > 60.00
[2025-02-18] MEDS: ATIVAN 1 MG PO (07:28)
[2025-02-18] MEDS: VITAMIN B1 100 MG PO (07:28)
[2025-02-18] MEDS: HEPARIN 5000 UNITS SC (07:28)
[2025-02-18] MEDS: FOLVITE 1 MG PO (07:28)
[2025-02-18] MEDS: ZOLOFT 100 MG PO (07:28)
[2025-02-18] MEDS: COZAAR 50 MG PO (07:28)
[2025-02-18] MEDS: ADVAIR HFA 115/21 MCG INHALER 2 PUFF INH (10:40)
[2025-02-18 11:00] VITALS: BP 103/74
--- NOTE | 2025-02-18 12:27 | W.PN.HOSP.TC ---
Addendum entered and electronically signed by Samson Polk MD 02/18/25 20:59:
Attending Addendum-
I saw and evaluated the patient. I reviewed the resident�s note and agree with findings and plan as documented in the resident�s note. Sub: no further hallucinations. ready to go to rehab. Appreciative of care. Denies cp palps diaphoresis tremors.
Full 12 point ROS reviewed and negative except as documented Exam: Vitals reviewed in chart GEN-mild distress due to being upset heart RRR lungs clear abd soft LE no edema Neuro no tremor AAO x 3 MS 11/08
# AUD with Alcohol withdrawal h/o DTs
- UDS positive for barbiturates last given at [facility] on 01/24 per patient.
- not in DT's no signs of autonomic instability- refusing prn clonidine
- cont Thiamine and folate
- MSAS @ 0 overnight
- Standing Phenobarbital taper DC'd- cont symptom triggered protocol with benzo
- IP rehab placement
#Pancytopenia- from AUD, CTM repeat CBC in am
#Essential hypertension- Continue losartan
#Tobacco abuse-advised to quit
#Hypothyroidism- Continue levothyroxine
#Anxiety/depression- Continue sertraline
Full code
DVT prophylaxis�heparin
Dispo DC to IP rehab
Time spent coordinating care, DC planning, review of DC plan of care with resident, transition of care, review of records, med rec/scripts sent electronically, consults, notes, d/w consultants, nursing, family, and CM� 32 mins >50% of this time was
devoted to counseling and coordination of care
Original Note:
Today's Communication/Plan
-
To be discharged to [facility] for inpatient rehab
To follow up with PCP for hypothyroidism
Assessment / Plan
Assessment / Plan
Anticipated Discharge: Today
Subjective/Interval History
-
Date of Service: February 18, 2025
Patient see.
Was agitated last night but feels better this morning
Objective Data
-
Labs:
Laboratory Results
02/18/25
06:22
WBC 3.4 L
Hgb 11.5 L
Hct 34.5 L
Plt Count 80 L D
Sodium 137
Potassium 3.9
Chloride 107
Carbon Dioxide 23
BUN 11
Creatinine 0.6
Glucose 75
Calcium 9.4
Vital Signs:
Vital Signs
Temp Pulse Resp BP Pulse Ox
98.5 F 82 18 103/74 98
02/18/25 11:00 02/18/25 11:00 02/18/25 11:00 02/18/25 11:00 02/18/25 11:00
I&O
02/17/25 02/18/25 02/19/25
06:59 06:59 06:59
Intake Total 2185 / 2185 1200 / 1200
Balance 2185 / 2185 1200 / 1200
Review of Systems
-
History Source: Patient
Constitutional: Reports No Symptoms
EENT: Reports No Symptoms Reported
Cardiac: Reports No Symptoms
Abdomen/GI: Reports Diarrhea
Breast: Reports No Symptoms
Physical Exam
-
General: Well Developed
Cardiac: Regular Rhythm and S1/S2
GI: Soft, Nontender, Nondistended and Normal Bowel Sounds
Neuro: Awake, Alert and Oriented
Psych: Calm
Data Reviewed
-
Labs: Labs Reviewed by me, Discussed with Physician and Discussed with Patient
--- NOTE | 2025-02-18 12:32 | W.DCSUMMARY ---
Addendum entered and electronically signed by Samson Polk MD 02/18/25 20:59:
Read, reviewed, and agree. See same day progress note for additional details.
Bridger Polk MD
Original Note:
Documented by User: Moriah Lopez MD, Resident 02/18/25 18:18
Discharge Summary
Discharge Data
Date of Admission: 02/16/25
Date of Discharge: 02/18/25
-
Pending Results: No
Hospital Course
Discharging Physician : Moriah Lopez MD, Edwin Davies MD
Disposition : In patient rehab facility
Primary care physician : Addie Burris
Principal Discharge diagnosis : Acute alcohol withdrawal. Alcohol Use disorder
Chronic Discharge diagnosis :
Hypertension
Hypothyroidism
Asthma
Anxiety and depression
Hospital Course : Patient is a 50year old female with Alcohol use disorder and past medical history of Hypertension, Hypothyroidism, Asthma, Anxiety and depression who presented to the [facility] ED on the 02/14/2025 with tremors, shaking nausea and
abdominal pain and chest tightness in alcohol withdrawal
While at the ED, she was in mild distress and anxious. Her bp was 194/113, pulse 95. She received normal saline, diazepam and Ativan.
She was placed on Barbiturate taper protocol which was later discontinued day 3
She was monitored for 2 days following discontinuing of Barbiturate and given Ativan as need, by MSAS criteria
Following improvement she was transferred to [facility] for inpatient drug rehab treatment
Discharge Plan
-
Patient Disposition: Acute Rehab Facility
Discharge Diagnosis/Procedures: Alcohol dependence with withdrawal
Condition: Fair
Diet: No restrictions
Activity: No restrictions
Bathing Restrictions: None
Referrals:
Addie Burris, DO [Family Provider] - in less than 1 week
Prescriptions:
New
thiamine mononitrate (vit B1) 100 mg Tablet
100 mg PO DAILY Qty: 30 0RF
Continued
losartan 50 mg Tablet
50 mg PO DAILY
levothyroxine 125 mcg Tablet
125 mcg PO DAILY
sertraline 100 mg Tablet
100 mg PO DAILY
folic acid 1 mg Tablet
1 mg PO DAILY
fluticasone propion-salmeterol [Advair Diskus] 100-50 mcg/dose Blister With Device
1 inh INHALATION R BID
albuterol sulfate 90 mcg/actuation Hfa Aerosol Inhaler
2 puff INHALATION R Q6HPRN PRN (Reason: sob)
biotin 1 mg Tablet
1 mg PO DAILY
Discharge Orders:
Discharge Patient (As Directed); Ordered 02/18/25
Ordered By: Moriah Lopez
Discharge Date and Time
Discharge Date/Time: 02/18/25 13:24
Print Language: EMIRATI

Documented by User: Samson Polk MD 02/18/25 20:58
Discharge Summary
Discharge Data
Date of Admission: 02/16/25
Date of Discharge: 02/18/25
Discharge Plan
-
Patient Disposition: Acute Rehab Facility
Discharge Diagnosis/Procedures: Alcohol dependence with withdrawal
Condition: Fair
Diet: No restrictions
Activity: No restrictions
Bathing Restrictions: None
Referrals:
Addie Burris DO [Family Provider] - in less than 1 week
Prescriptions:
New
thiamine mononitrate (vit B1) 100 mg Tablet
100 mg PO DAILY Qty: 30 0RF
Continued
losartan 50 mg Tablet
50 mg PO DAILY
levothyroxine 125 mcg Tablet
125 mcg PO DAILY
sertraline 100 mg Tablet
100 mg PO DAILY
folic acid 1 mg Tablet
1 mg PO DAILY
fluticasone propion-salmeterol [Advair Diskus] 100-50 mcg/dose Blister With Device
1 inh INHALATION R BID
albuterol sulfate 90 mcg/actuation Hfa Aerosol Inhaler
2 puff INHALATION R Q6HPRN PRN (Reason: sob)
biotin 1 mg Tablet
1 mg PO DAILY
Discharge Orders:
Discharge Patient (As Directed); Ordered 02/18/25
Ordered By: Moriah Lopez
Discharge Date and Time
Discharge Date/Time: 02/18/25 13:24
Print Language: EMIRATI
--- NOTE | 2025-02-18 13:04 | CM ---
CM reviewed chart, reviewed with Eugene from [facility], Resident, and Nurse, patient medically stable for discharge today. [facility] requesting patient be sent with paper scripts, provided by Resident and will be sent upon discharge. Patient
scheduled for 1:00 p.m. transport by [facility]. CM will continue to follow for all discharge planning needs.
Plan; [facility], 1:00 p.m. transport via treatment facility
--- NOTE | 2025-02-18 13:31 | PTCARENOTE ---
Discharge orders acknowledged. MSAS 0 upon discharge. Paper script provided for medications. [facility] arranged transport to [facility]. Escorted to transportation by volunteer wheelchair.
== END 2025-02-18 13:24 | DRG 897 ==
LOC: 4 WEST ACU 07:48
PROVIDERS: ADMITTING PHYSICIAN Hospitalist; ATTENDING PHYSICIAN Family Medicine; EMERGENCY PHYSICIAN Student in an Organized Health Care Education/Training Program; FAMILY PHYSICIAN Student in an Organized Health Care Education/Training Program
DX: F10.239 Alcohol dependence with withdrawal, unspecified (principal); D61.818 Other pancytopenia; R44.0 Auditory hallucinations; E03.9 Hypothyroidism, unspecified; I10 Essential (primary) hypertension; F41.9 Anxiety disorder, unspecified; F32.A Depression, unspecified; F17.290 Nicotine dependence, other tobacco product, uncomplicated; R44.1 Visual hallucinations; R45.1 Restlessness and agitation; J45.909 Unspecified asthma, uncomplicated; Y90.2 Blood alcohol level of 40-59 mg/100 ml; Z79.890 Hormone replacement therapy
CPT/HCPCS: 80048; 80053; 80306; 81003; 81015; 82077; 83735; 84132; 84703; 85025; 85027; 93005; 94640; 96361; 96374; 96375; 96376; 99285